=== PATIENT | male | born 1950 | race Caucasian/White ===

== ENCOUNTER 2023-07-06 08:13 | Outpatient (CLI) | payer MEDICARE ==
[2023-07-06] MEDS ORDERED: Iopamidol 300 61% 100 ML VIAL FS ONE (09:47)
== END 2023-07-06 08:14 | disposition home or self-care (01) ==
LOC: CSHCT 08:13
PROVIDERS: ATTEND Family Medicine
DX: R31.9 Hematuria, unspecified (principal)
CPT/HCPCS: 74178

== ENCOUNTER 2024-01-01 08:04 | Outpatient (CLI) | payer MEDICARE | END 2024-01-01 08:05 | disposition home or self-care (01) | LOC: CSHRAD 08:04 | PROVIDERS: ATTEND Urology | DX: R31.29 Other microscopic hematuria (principal); N20.0 Calculus of kidney; N28.1 Cyst of kidney, acquired; K76.9 Liver disease, unspecified; K57.30 Diverticulosis of large intestine without perforation or abscess without bleeding; Z90.49 Acquired absence of other specified parts of digestive tract | CPT/HCPCS: 74178; 82565 ==